=== PATIENT | female | born 1995 | race African-American/Black ===

== ENCOUNTER 2024-01-20 10:32 | Emergency (ER) | payer OTHER ==
[~2024-01-20] VITALS: Ht 162.6 cm; Wt 90.0 kg
[2024-01-20 10:34] VITALS: O2SAT 100
[2024-01-20 11:35] LABS: BASOPHILS % 0.9 % (0.0-2.0); DIFFERENTIAL COMMENT 0; EOSINOPHILS % 0.2 % (0.0-5.0); HEMATOCRIT. 35.9 % (36.0-48.0); HEMOGLOBIN. 12.2 g/dL (12.0-16.0); LYMPHOCYTES % 8.2 % (20.0-50.0); MEAN CORPUSCULAR HEMOGLOBIN 34.7 pg (28.0-32.0); MEAN CORPUSCULAR VOLUME 102.2 fL (81.0-99.0); MEAN PLATELET VOLUME 8.9 fl (7.4-10.4); MONOCYTES % 5.4 % (2.0-8.0); NEUTROPHILS % 85.3 % (40.0-76.0); PLATELET 156 x1000/uL (130-400); RED BLOOD CELL COUNT 3.51 mill/uL (4.2-5.4); WHITE BLOOD COUNT 6.3 x1000/uL (4.5-11.0)
[2024-01-20 11:43] LABS: CHLORIDE 98 mEq/L (98-107); POTASSIUM 3.4 mEq/L (3.5-5.1); SODIUM 138 mEq/L (136-145)
[2024-01-20 11:44] LABS: CALCIUM 10.1 mg/dL (8.7-10.4); CARBON DIOXIDE 24 mEq/L (21-32)
[2024-01-20 11:49] LABS: CREATININE 0.7 mg/dL (0.6-1.0); GLUCOSE 93 mg/dL (70-105)
[2024-01-20 11:51] LABS: ALANINE AMINOTRANSFERASE 56 IU/L (10-49); ALBUMIN 4.9 g/dL (3.2-4.8); ASPARTATE AMINOTRANSFERASE 300 IU/L (<34); BILIRUBIN TOTAL 1.2 mg/dL (0.1-1.0); PHOSPHORUS 2.7 mg/dL (2.5-4.9); PROTEIN TOTAL 8.1 g/dL (6.0-8.3)
[2024-01-20 11:53] LABS: HCG SCREEN NEGATIVE
[2024-01-20 11:58] LABS: UREA NITROGEN BLOOD < 5 mg/dL (9-23)
[2024-01-20] MEDS: SODIUM CHLORIDE 0.9% 1,000 ML IV ONE (13:38)
[2024-01-20 14:12] VITALS: BP 154/67; PULSE 74; RESP 16; TEMP 36.66960; O2SAT 100
== END 2024-01-20 14:30 | disposition home or self-care (01) ==
LOC: ER 11:00
DX: R56.9 Unspecified convulsions (principal)
CPT/HCPCS: 80053; 84703; 83735; 84100; 85025; 36415; 93005; 96360; 99284; J7030; Z7610

== ENCOUNTER 2024-01-28 16:14 | Emergency (ER) | payer SELFPAY ==
[~2024-01-28] VITALS: Ht 165.1 cm; Wt 72.0 kg
[2024-01-28 16:18] VITALS: O2SAT 99
[2024-01-28 16:46] VITALS: TEMP 37.05852
[2024-01-28] MEDS: LEVETIRACETAM 1000MG PREMIX 100 ML IV ONE (16:46)
[2024-01-28 17:48] VITALS: BP 132/87; PULSE 88; RESP 18; O2SAT 99
[2024-01-28 18:35] LABS: BASOPHILS % 1.8 % (0.0-2.0); DIFFERENTIAL COMMENT 0; EOSINOPHILS % 0.2 % (0.0-5.0); HEMATOCRIT. 34.4 % (36.0-48.0); HEMOGLOBIN. 11.8 g/dL (12.0-16.0); LYMPHOCYTES % 9.8 % (20.0-50.0); MEAN CORPUSCULAR HEMOGLOBIN 34.9 pg (28.0-32.0); MEAN CORPUSCULAR HGB CONC 34.4 g/dL (31.0-37.0); MEAN CORPUSCULAR VOLUME 101.5 fL (81.0-99.0); MEAN PLATELET VOLUME 8.7 fl (7.4-10.4); MONOCYTES % 6.7 % (2.0-8.0); NEUTROPHILS % 81.5 % (40.0-76.0); PLATELET 215 x1000/uL (130-400); RED BLOOD CELL COUNT 3.39 mill/uL (4.2-5.4); RED CELL DISTRIBUTION WIDTH 13.4 % (11.6-14.6); WHITE BLOOD COUNT 5.2 x1000/uL (4.5-11.0)
[2024-01-28 18:40] LABS: CHLORIDE 97 mEq/L (98-107); POTASSIUM 3.5 mEq/L (3.5-5.1); SODIUM 135 mEq/L (136-145)
[2024-01-28 18:41] LABS: CALCIUM 9.7 mg/dL (8.7-10.4); CARBON DIOXIDE 21 mEq/L (21-32)
[2024-01-28 18:46] LABS: CREATININE 0.7 mg/dL (0.6-1.0); GLUCOSE 76 mg/dL (70-105); UREA NITROGEN BLOOD 6 mg/dL (9-23)
[2024-01-28 18:47] LABS: ETHANOL BLOOD 24 mg/dL (<10)
[2024-01-28] MEDS ORDERED: KEPP500 MT (19:45)
== END 2024-01-28 19:50 | disposition home or self-care (01) ==
LOC: ER 16:14
DX: G40.909 Epilepsy, unspecified, not intractable, without status epilepticus (principal)
CPT/HCPCS: 80048; 80320; 85025; 36415; 70450; 96365; 99285; J1953; G0480

== ENCOUNTER 2024-11-18 21:17 | Emergency (ER) | payer MEDICAID ==
[~2024-11-18] VITALS: Ht 162.6 cm; Wt 61.0 kg
[~2024-11-18 21:17] MED LIST: KEPP500 MT
[2024-11-18 21:30] VITALS: TEMP 36.6; O2SAT 98
[2024-11-19 00:02] VITALS: BP 97/58; PULSE 72; RESP 16; O2SAT 95
[2024-11-19 01:50] LABS: HCG SCREEN NEGATIVE
== END 2024-11-19 02:26 | disposition home or self-care (01) ==
LOC: ER 21:17
DX: S00.83XA Contusion of other part of head, initial encounter (principal); F10.90 Alcohol use, unspecified, uncomplicated; Z86.59 Personal history of other mental and behavioral disorders; X58.XXXA Exposure to other specified factors, initial encounter; Y93.89 Activity, other specified; Y92.89 Other specified places as the place of occurrence of the external cause; Y99.8 Other external cause status; Y90.9 Presence of alcohol in blood, level not specified
CPT/HCPCS: 81025; 84703; 99284

== ENCOUNTER 2024-12-28 16:02 | Emergency (ER) | payer BC, MEDICAID ==
[~2024-12-28] VITALS: Ht 167.6 cm; Wt 59.0 kg
[2024-12-28 16:10] VITALS: BP 116/80; PULSE 72; RESP 18; TEMP 36.7; O2SAT 99
== END 2024-12-28 16:31 | disposition home or self-care (01) ==
LOC: ER 16:02
DX: F10.129 Alcohol abuse with intoxication, unspecified (principal); Y90.9 Presence of alcohol in blood, level not specified
CPT/HCPCS: 82962; 99283

== ENCOUNTER 2025-01-28 22:44 | Emergency (ER) | payer MEDICAID ==
[~2025-01-28] VITALS: Ht 170.2 cm; Wt 60.0 kg
[2025-01-28 22:50] VITALS: O2SAT 100
[2025-01-29 00:16] LABS: CREATININE 0.8 mg/dL (0.6-1.0)
[2025-01-29 00:17] LABS: UREA NITROGEN BLOOD < 5 mg/dL (9-23)
[2025-01-29 00:18] LABS: ASPARTATE AMINOTRANSFERASE 116 IU/L (<34)
[2025-01-29 00:19] LABS: BILIRUBIN DIRECT 0.1 mg/dL (<=3.0); BILIRUBIN TOTAL 0.4 mg/dL (0.1-1.0); PROTEIN TOTAL 8.4 g/dL (6.0-8.3)
[2025-01-29 00:22] VITALS: BP 111/74; PULSE 71; RESP 18; TEMP 36.6; O2SAT 98
[2025-01-29 00:22] LABS: HCG SCREEN NEGATIVE
[2025-01-29] MEDS: SODIUM CHLORIDE 0.9% 1,000 ML IV ONE (00:22)
[2025-01-29 00:45] LABS: ETHANOL BLOOD 524 mg/dL (<10)
== END 2025-01-29 00:50 | disposition left against medical advice (07) ==
LOC: ER 22:44
DX: F10.229 Alcohol dependence with intoxication, unspecified (principal); Z53.29 Procedure and treatment not carried out because of patient's decision for other reasons; Y90.9 Presence of alcohol in blood, level not specified
CPT/HCPCS: 80076; 80048; 80320; 84703; 83690; 36415; 96360; 99283; J7030; 85025; G0480